=== PATIENT | female | born 1990 | race American Indian/Alaskan Native ===

== ENCOUNTER 2016-12-27 13:12 | Emergency (ER) | payer OTHER ==
[2016-12-27 13:30] VITALS: BMI 20.3
[2016-12-27 13:35] VITALS: TEMP 98.2; O2SAT 98
[2016-12-27] MEDS ORDERED: Sodium Chloride 0.9% 1,000 ML IV STA (13:40)
--- NOTE | 2016-12-27 14:07 | ED PDOC ---
Arrival/HPI - General Chief Complaint: Abdominal Pain Time Seen by Provider: 12/27/16 13:36 Historian: Patient - History of Present Illness Narrative History of Present Illness (Text): 12/27/16 14:04 Ruby Rodrigues is a 26 year old female who presents to the emergency department complaining of abdominal pain since earlier today morning. Patient reports that she woke up with the pain in the middle of the night and notes of 3 bouts of non -bloody, non-bilious vomiting. Patient also reports of left adexa pain. Last menstrual period was last month. Denies fever, chills, headache, difficulty breathing, diarrhea, urinary symptoms, or any other complaints at this time. no vb, discharge. 12/27/16 16:52 Time/Duration: 24 hours (since midnight today ) Symptom Onset: Gradual Symptom Course: Unchanged Severity Level: Mild Activities at Onset: Sleeping Context: Home Past Medical History - Provider Review Nursing Documentation Reviewed: Yes - Infectious Disease Hx of Infectious Diseases: None - Psychiatric Hx Substance Use: No - Surgical History Other/Comment: cyst removed collar bone - Anesthesia Hx Anesthesia Reactions: No Hx Malignant Hyperthermia: No Family/Social History - Physician Review Nursing Documentation Reviewed: Yes Family/Social History: No Known Family HX Smoking Status: Never Smoked Hx Alcohol Use: Yes Hx Substance Use: No Allergies/Home Meds Allergies/Adverse Reactions: Allergies No Known Allergies Allergy (Verified 12/27/16 13:30) Review of Systems - Physician Review All systems were reviewed & negative as marked: Yes - Review of Systems Constitutional: Normal. absent: Fatigue, Fevers Respiratory: Normal. absent: SOB, Cough, Sputum Cardiovascular: Normal. absent: Chest Pain Gastrointestinal: Abdominal Pain, Nausea, Vomiting. absent: Diarrhea Genitourinary Female: Normal Musculoskeletal: Back Pain, Other (left groin area ) Neurological: Normal. absent: Headache, Dizziness Psychiatric: Normal Physical Exam Vital Signs Reviewed: Yes Vital Signs Temp Pulse Resp BP Pulse Ox 12/27/16 16:34 89 18 101/61 98 12/27/16 15:39 98 H 18 99/59 L 98 12/27/16 13:13 98.2 F 107 H 16 95/51 L 98 Temperature: Afebrile Blood Pressure: Normal Pulse: Tachycardic Respiratory Rate: Normal Appearance: Positive for: Well-Appearing, Non-Toxic, Comfortable Pain Distress: None Mental Status: Positive for: Alert and Oriented X 3 - Systems Exam Head: Present: Atraumatic, Normocephalic Pupils: Present: PERRL Conjunctiva: Present: Normal Respiratory/Chest: Present: Clear to Auscultation, Good Air Exchange. No: Respiratory Distress, Accessory Muscle Use Cardiovascular: Present: Regular Rate and Rhythm, Normal S1, S2. No: Murmurs Abdomen: Present: Tenderness (minimal left Adnexal tenderness ), Normal Bowel Sounds. No: Distention, Peritoneal Signs Neurological: Present: GCS=15, CN II-XII Intact, Speech Normal Skin: Present: Warm, Dry, Normal Color. No: Rashes Psychiatric: Present: Alert, Oriented x 3, Normal Insight, Normal Concentration Medical Decision Making ED Course and Treatment: 12/27/16 14:09 Impression: A 26 year old female who presents to the ed complaining of back pain and abdominal pain with nausea and vomiting since earlier today. Plan: -- Labs -- IV fluids -- Zofran -- HCG -- Urinalysis -- Transvaginal US -- Reassess and disposition Progress Notes: 12/27/16 16:40 US Transvaginal results reviewed: IMPRESSION: Unremarkable pelvic ultrasound thickened J 12/27/16 16:51 pt reassessed. abd soft. no ttp. no rlq ttp. pt now states feels well to go home. nonspecifc pain. no rlq, focal ttp. no clinic concern for appendicits, coltitis. advise outpt f/u and return precautions - Lab Interpretations Lab Results: 12/27/16 14:58 12/27/16 14:58 Lab Results 12/27/16 14:58: WBC 7.7, RBC 4.46, Hgb 13.3, Hct 38.8, MCV 87.0, MCH 29.8, MCHC 34.3, RDW 13.4, Plt Count 247, MPV 10.0, Gran % 89.3 H, Lymph % (Auto) 5.8 L, Ness % (Auto) 4.8, Eos % (Auto) 0.0 L, Baso % (Auto) 0.1, Gran # 6.89 H, Lymph # 0.5 L, Ness # 0.4, Eos # 0.0, Baso # 0.01, PT 11.8, INR 1.09 H, APTT 26.5, Sodium 138, Potassium 3.5 L, Chloride 101, Carbon Dioxide 24, Anion Gap 17, BUN 12, Creatinine 0.7, Est GFR ( Amer) > 60, Est GFR (Non-Af Amer) > 60, Random Glucose 103, Calcium 8.9, Total Bilirubin 1.5 H, AST 27, ALT 19, Alkaline Phosphatase 78, Total Protein 8.2, Albumin 4.4, Globulin 3.8, Albumin/ Globulin Ratio 1.2, Lipase 41 12/27/16 14:40: Urine Color Yellow, Urine Appearance Sl cloudy, Urine pH 6.0, Ur Specific [place] >= 1.030, Urine Protein Trace H, Urine Glucose (UA) Negative , Urine Ketones 40 H, Urine Blood Negative, Urine Nitrate Negative, Urine Bilirubin Negative, Urine Urobilinogen 1.0 H, Ur Leukocyte Esterase Negative, Urine RBC 0 - 2, Urine WBC 0 - 2, Ur Epithelial Cells 3 - 4, Urine Bacteria Few , Urine HCG, Qual Negative I have reviewed the lab results: Yes - RAD Interpretation Narrative RAD Interpretations (Text): PROCEDURE: FINDINGS: The uterus measures 8.6 x 4.2 centimeters. The endometrium measures 3 millimeters. The right ovary measures 2.7 by 1.9 x 2.9 centimeters. The left ovary measures 2.7 x 1.6 x 1.5 centimeters. There is no free fluid the pelvis. IMPRESSION: Unremarkable pelvic ultrasound thickened J Radiology Orders: 12/27/16 13:41 TRANSVAGINAL [US] [employer] Teacher: Radiologist - Medication Orders Current Medication Orders: Discontinued Medications Sodium Chloride (Sodium Chloride 0.9%) 1,000 mls @ 1,000 mls/hr IV .Q1H STA Stop: 12/27/16 14:39 Last Admin: 12/27/16 14:45 Dose: 1,000 MLS/HR eMAR Start Stop Document 12/27/16 14:45 ALISHA (Rec: 12/27/16 14:54 ALISHA [id number]) Intravenous Solution Start Date 12/27/16 Start Time 14:45 End Date 12/27/16 End time 15:45 Total Infusion Time 60 Ketorolac Tromethamine (Toradol) 30 mg IVP STAT STA Stop: 12/27/16 15:52 Last Admin: 12/27/16 16:01 Dose: 30 MG IVP Administration Document 12/27/16 16:01 ALISHA (Rec: 12/27/16 16:01 ALISHA [id number]) Charges for Administration # of IVP Administrations 1 Ondansetron HCl (Zofran Inj) 4 mg IVP STAT STA Stop: 12/27/16 13:41 Last Admin: 12/27/16 14:50 Dose: 4 MG IVP Administration Document 12/27/16 14:50 ALISHA (Rec: 12/27/16 14:55 ALISHA [id number]) Charges for Administration # of IVP Administrations 1 - Scribe Statement The provider has reviewed the documentation as recorded by the Claritaibe Shayan Delatorre Provider Attestation: All medical record entries made by the Claritaibe were at my direction and personally dictated by me. I have reviewed the chart and agree that the record accurately reflects my personal performance of the history, physical exam, medical decision making, and the department course for this patient. I have also personally directed, reviewed, and agree with the discharge instructions and disposition. Disposition/Present on Arrival - Present on Arrival Any Indicators Present on Arrival: No History of DVT/PE: No History of Uncontrolled Diabetes: No Urinary Catheter: No History of Decub. Ulcer: No History Surgical Site Infection Following: None - Disposition Have Diagnosis and Disposition been Completed?: Yes Diagnosis: Pelvic pain, Abdominal pain Disposition: HOME/ ROUTINE Disposition Time: 16:56 Condition: STABLE Discharge Instructions (ExitCare): Acute Abdominal Pain (ED), Pelvic Pain (ED) Additional Instructions: please follow up with your doctor/clinic and specialists. return to er with worsening symptoms or concerns. Prescriptions: Naproxen 500 mg PO BID PRN #14 tab PRN Reason: Pain, Mild (1-3) Referrals: PCP,NO [Primary Care Provider] - Follow up with primary [facility] [place] [Outside] - Follow up with primary [facility] [Outside] - Follow up with primary Boby Elmore MD [Staff Provider] - Follow up with primary Elda Gauthier MD [Staff Provider] - Follow up with primary
[2016-12-27 15:08] LABS: ADD MANUAL DIFF? NO
[2016-12-27 15:27] LABS: BASO # 0.01 K/mm3 (0.0-2.0); BASO % 0.1 % (0.0-3.0); GRAN # 6.89 (1.4-6.5); GRAN % 89.3 % (50.0-68.0); HEMATOCRIT 38.8 % (36.0-48.0); LYMPH # 0.5 (1.2-3.4); LYMPH % 5.8 % (22.0-35.0); MEAN CORPUSCULAR HEMOGLOBIN 29.8 pg (25.0-35.0); MEAN CORPUSCULAR HGB CONC 34.3 g/dl (31.0-37.0); MONO # 0.4 (0.1-0.6); MONO % 4.8 % (1.0-6.0); PLATELET COUNT 247 10^3/uL (120.0-450.0); RED CELL DISTRIBUTION WIDTH 13.4 % (11.5-14.5); WHITE BLOOD COUNT 7.7 10^3/ul (4.5-11.0)
[2016-12-27 15:28] LABS: URINE BILIRUBIN NEGATIVE (NEGATIVE); URINE BLOOD NEGATIVE (NEGATIVE); URINE GLUCOSE (UA) NEGATIVE (NEGATIVE); URINE KETONE 40 mg/dL (NEGATIVE); URINE LEUKOCYTE ESTERASE NEGATIVE Leu/uL (NEGATIVE); URINE PROTEIN TRACE mg/dL (<30 mg/dL)
[2016-12-27 15:29] LABS: URINE APPEARANCE SL CLOUDY (CLEAR); URINE COLOR YELLOW (YELLOW)
[2016-12-27 15:30] LABS: INR 1.09 (0.93-1.08); PARTIAL THROMBOPLASTIN TIME 26.5 Seconds (23.7-30.8)
[2016-12-27 15:31] LABS: ALB/GLOB RATIO 1.2 (1.1-1.8); ALKALINE PHOSPHATASE 78 U/L (38-133); ALT/SGPT 19 U/L (7-56); AST/SGOT 27 U/L (15-39); BILIRUBIN,TOTAL 1.5 mg/dL (0.2-1.3); BLOOD UREA NITROGEN 12 mg/dL (7-21); CALCIUM 8.9 mg/dL (8.4-10.5); CARBON DIOXIDE 24 mmol/L (21-33); CHLORIDE 101 mmol/L (98-107); GFR AFRICAN-AMERICAN > 60; GLUCOSE,RANDOM 103 mg/dL (70-110); LIPASE 41 U/L (23-300); POTASSIUM 3.5 mmol/L (3.6-5.0); SODIUM 138 mmol/L (132-148); TOTAL PROTEIN 8.2 g/dL (5.8-8.3)
[2016-12-27 15:40] VITALS: RESP 18
[2016-12-27 15:52] LABS: URINE RBC 0 - 2 /hpf (0-2); URINE WBC 0 - 2 /hpf (0-6)
[2016-12-27 15:53] LABS: URINE BACTERIA FEW (NEG)
--- NOTE | 2016-12-27 16:07 | US ---
PROCEDURE: HISTORY: left adexal pain COMPARISON: TECHNIQUE: FINDINGS: The uterus measures 8.6 x 4.2 centimeters. The endometrium measures 3 millimeters. The right ovary measures 2.7 by 1.9 x 2.9 centimeters. The left ovary measures 2.7 x 1.6 x 1.5 centimeters. There is no free fluid the pelvis. IMPRESSION: Unremarkable pelvic ultrasound thickened J
[2016-12-27 16:34] VITALS: BP 101/61; PULSE 89
== END 2016-12-27 17:21 | disposition home or self-care (01) ==
LOC: ED 13:12
DX: R10.2 Pelvic and perineal pain (principal); R10.9 Unspecified abdominal pain
CPT/HCPCS: 76830; 80053; 81001; 83690; 84703; 85025; 85610; 85730; 96361; 96374; 96375; 99283; J1885; J2405; J7040

== ENCOUNTER 2018-06-29 10:35 | Emergency (ER) | payer OTHER ==
[2018-06-29 10:36] VITALS: BMI 65.0
[2018-06-29] MEDS ORDERED: Sodium Chloride 0.9% 1,000 ML IV STA (11:36)
--- NOTE | 2018-06-29 11:57 | ED PDOC ---
Arrival/HPI - General Historian: Patient - History of Present Illness Narrative History of Present Illness (Text): 06/29/18 11:50 28 yo F with PMHx of anxiety, depression presenting to ED with lightheadedness s/p syncopal episode. Per patient, she was waiting in line discussing her welfare status earlier this AM when she suddenly began feeling nauseous and dizzy. Endorses syncopal fall, denies any head trauma. Has associated nausea but no vomiting. She denies any headaches, dizziness currently, sob, cough, changes in vision, chest pain, palpitations, abdominal pain, vomiting/diarrhea/constipation. Of note, patient is 14 weeks , follows Dr. Alvarado in [place]. Endorses recent fevers 1-2 weeks ago for which she was given antibiotics. PMHx: anxiety, depression, recent strep PSHx: , Allergies: NKDA Home Medications: as per chart FHx: HTN, DM Social Hx: denies alcohol, tobacco, drug use. 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, [place] Time/Duration: 1-3 hours Symptom Onset: Sudden Symptom Course: Improving Severity Level: Mild Activities at Onset: Light Context: Standing <Guy Wills - Last Filed: 06/29/18 16:36> <Brendan Medley - Last Filed: 06/29/18 18:00> - General Time Seen by Provider: 06/29/18 11:00 Past Medical History - Provider Review Nursing Documentation Reviewed: Yes - Infectious Disease Hx of Infectious Diseases: None - Cardiac Hx Cardiac Disorders: No - Psychiatric Hx Psychophysiologic Disorder: Yes Hx Anxiety: Yes Hx Depression: Yes Hx Substance Use: No - Surgical History Hx Section: Yes Other/Comment: cyst removed collar bone - Anesthesia Hx Anesthesia: Yes Hx Anesthesia Reactions: No Hx Malignant Hyperthermia: No <Guy Wills - Last Filed: 06/29/18 16:36> Family/Social History - Physician Review Nursing Documentation Reviewed: Yes Family/Social History: Diabetes, Hypertension Smoking Status: Never Smoked Hx Alcohol Use: Yes Hx Substance Use: No <Guy Wills - Last Filed: 06/29/18 16:36> Allergies/Home Meds <Guy Wills - Last Filed: 06/29/18 16:36> <Brendan Medley - Last Filed: 06/29/18 18:00> Allergies/Adverse Reactions: Allergies No Known Allergies Allergy (Verified 12/27/16 13:30) Home Medications: Home Meds Medication Instructions Recorded Confirmed Vit #49/Iron Fum/FA [Mini 1 each PO DAILY 06/29/18 06/29/18 Tablet] Review of Systems - Review of Systems Constitutional: Normal Eyes: Normal ENT: Normal Respiratory: Normal. absent: SOB, Cough Cardiovascular: Normal, Syncope. absent: Chest Pain, Palpitations Gastrointestinal: Nausea. absent: Abdominal Pain, Constipation, Diarrhea, Vomiting, Hematochezia, Hematemesis Genitourinary Female: Normal. absent: Dysuria, Frequency, Hematuria, Urine Output Changes Musculoskeletal: Normal Skin: Normal Neurological: Normal. absent: Headache, Dizziness Endocrine: Normal Hemo/Lymphatic: Normal Psychiatric: Anxiety, Depression <Guy Wills - Last Filed: 06/29/18 16:36> Physical Exam Vital Signs Reviewed: Yes Vital Signs Temp Pulse Resp BP Pulse Ox 06/29/18 10:53 98.2 F 100 H 16 97/60 L 100 Temperature: Afebrile Blood Pressure: Hypotensive Pulse: Tachycardic Respiratory Rate: Normal Appearance: Positive for: Well-Appearing, Non-Toxic, Comfortable Pain Distress: None Mental Status: Positive for: Alert and Oriented X 3 Finger Stick Blood Glucose: 83 - Systems Exam Head: Present: Atraumatic, Normocephalic Pupils: Present: PERRL Extroacular Muscles: Present: EOMI Conjunctiva: Present: Normal Ears: Present: Normal Mouth: Present: Moist Mucous Membranes Pharnyx: Present: Normal Neck: Present: Normal Range of Motion Respiratory/Chest: Present: Clear to Auscultation, Good Air Exchange. No: Respiratory Distress, Accessory Muscle Use, Wheezes, Rales, Rhonchi Cardiovascular: Present: Regular Rate and Rhythm, Normal S1, S2. No: Murmurs Abdomen: Present: Normal Bowel Sounds. No: Tenderness, Distention, Rebound, Guarding, Mass/Organomegaly Upper Extremity: Present: Normal Inspection, Normal ROM, NORMAL PULSES, Capillary Refill < 2s. No: Cyanosis, Edema, Tenderness, Swelling Lower Extremity: Present: Normal Inspection, NORMAL PULSES, Normal ROM, Capillary Refill < 2 s. No: Edema, CALF TENDERNESS, Tenderness, Swelling Neurological: Present: CN II-XII Intact, Speech Normal Skin: Present: Warm, Dry, Normal Color. No: Rashes Psychiatric: Present: Alert, Oriented x 3, Normal Insight, Normal Concentration <Guy Wills - Last Filed: 06/29/18 16:36> Vital Signs Temp Pulse Resp BP Pulse Ox 06/29/18 12:11 94 H 18 99/65 L 100 06/29/18 10:53 98.2 F 100 H 16 97/60 L 100 <Brendan Medley - Last Filed: 06/29/18 18:00> Medical Decision Making ED Course and Treatment: 06/29/18 12:01 Impression: 28 yo AA F with PMHx of anxiety, depression presenting to ED with lightheadedness, syncopal episode Plan: --CBC, CMP --PT/PTT --beta HCG --type and screen --IVF --transvaginal u/s --UA --fingerstick glucose --monitor and disposition - RAD Interpretation Radiology Orders: 06/29/18 11:36 TRANSVAGINAL [US] Stat - EKG Interpretation EKG Interpretation (Text): 06/29/18 12:00 NSR 91 bpm Interpreted by ED Physician: Yes Type: 12 lead EKG - Medication Orders Current Medication Orders: Sodium Chloride (Sodium Chloride 0.9%) 1,000 mls @ 999 mls/hr IV .Q1H1M STA Stop: 06/29/18 12:36 <Guy Wills - Last Filed: 06/29/18 16:36> ED Course and Treatment: 06/29/18 12:40 Patient Seen With Resident: In agreement with resident note. Patient was seen and evaluated with resident, came up with plan and treatment together. Impression: Patient is a 28 year old female who is complaining of a syncopal event. 06/29/18 18:00 pt seen with resident s/p syncope. labs us neg. pt eating in nad. vitalst atable no ekg changes. ?dehydration vs vasovagal. doubt cardiac etiology. no cp no sob, no cardipulm complaints stable for outpt mangment and return precautions. - Lab Interpretations Lab Results: 06/29/18 11:52 06/29/18 11:52 Lab Results 06/29/18 11:52: Sodium 136, Potassium 4.3, Chloride 103, Carbon Dioxide 25, Anion Gap 13, BUN 9, Creatinine 0.4 L, Est GFR ( Amer) > 60, Est GFR (Non-Af Amer) > 60, Random Glucose 94, Calcium 9.7, Total Bilirubin 0.3, AST 24, ALT 26, Alkaline Phosphatase 58, Total Protein 7.3, Albumin 3.9, Globulin 3.3, Albumin/Globulin Ratio 1.2 06/29/18 11:52: Urine Color Yellow, Urine Appearance Cloudy, Urine pH 7.5, Ur Specific [place] 1.020, Urine Protein 30 H, Urine Glucose (UA) Negative, Urine Ketones Negative, Urine Blood Negative, Urine Nitrate Negative, Urine Bilirubin Negative, Urine Urobilinogen 1.0 H, Ur Leukocyte Esterase Small H, Urine RBC 0 - 2, Urine WBC 5 - 10, Ur Epithelial Cells Many, Amorphous Sediment Few, Urine Bacteria Many, Urine Other Uyeast, Urine HCG, Qual Positive 06/29/18 11:52: PT 11.8, INR 1.03, APTT 26.3 06/29/18 11:52: WBC 9.3 D, RBC 4.03, Hgb 11.8 L, Hct 34.1 L, MCV 84.6, MCH 29.3, MCHC 34.6, RDW 13.1, Plt Count 311, MPV 8.9, Gran % 79.7 H, Lymph % (Auto) 14.3 L, [place] % (Auto) 4.9, Eos % (Auto) 1.0 L, Baso % (Auto) 0.1, Gran # 7.44 H , Lymph # (Auto) 1.3, [place] # (Auto) 0.5, Eos # (Auto) 0.1, Baso # (Auto) 0.01 - RAD Interpretation Narrative RAD Interpretations (Text): 06/29/18 14:29 Ultrasound: Dictator : Kayden Polk MD FINDINGS: Cardiac activity: Present Rate: 145 BPM Measurements: [place] rump length: 7.42 cm Gestational age based on CRL 13 weeks 4 days. Gestational age based on gestational femur length 1.17 cm 13 weeks 3 days Gestational age based on BPD of 2.2 cm 13 weeks 5 days Gestational age derived from LMP: 13 weeks 3 days YAMILETH based on LMP: 01/01/2019 YAMILETH based on biometry: 12/31/2018 Gestational concordance documented Cervix: No Cervical abnormalities: Negative examination for cervical dilatation or effacement. Closed cervix measuring 5.2 cm Subchorionic hemorrhage: None UTERUS: 7 x 10.8 x 15.8 cm. ADNEXA: Right: 4.3 x 4.6 x 5.7 cm. Normal Doppler arterial waveform documented. Left: 2.5 x 3.9 x 4.1 cm. Normal Doppler arterial waveform documented Fluid in the cul-de-sac: None Anterior placenta IMPRESSION: Thirteen weeks 4 days live intrauterine gestation. Gestational concordance documented. Radiology Orders: 06/29/18 11:36 TRANSVAGINAL [US] [employer] Engineer: Radiologist - Medication Orders Current Medication Orders: Discontinued Medications Sodium Chloride (Sodium Chloride 0.9%) 1,000 mls @ 999 mls/hr IV .Q1H1M STA Stop: 06/29/18 12:36 Last Admin: 06/29/18 11:58 Dose: 999 mls/hr eMAR Start Stop Document 06/29/18 11:58 HI (Rec: 06/29/18 11:58 HI [id number]) Intravenous Solution Start Date 06/29/18 Start Time 11:58 <Brendan Medley - Last Filed: 06/29/18 18:00> - Scribe Statement The provider has reviewed the documentation as recorded by the Scribe Philip Mix Provider Scribe Attestation: All medical record entries made by the Scribe were at my direction and personally dictated by me. I have reviewed the chart and agree that the record accurately reflects my personal performance of the history, physical exam, medical decision making, and the department course for this patient. I have also personally directed, reviewed, and agree with the discharge instructions and disposition. <Brendan Medley - Last Filed: 06/29/18 18:00> Disposition/Present on Arrival - Present on Arrival Any Indicators Present on Arrival: No History of DVT/PE: No History of Uncontrolled Diabetes: No Urinary Catheter: No History of Decub. Ulcer: No History Surgical Site Infection Following: None - Disposition Have Diagnosis and Disposition been Completed?: Yes Disposition Time: 16:36 <Guy Wills - Last Filed: 06/29/18 16:36> <ReyluisBrendan - Last Filed: 06/29/18 18:00> - Disposition Diagnosis: Syncope Disposition: HOME/ ROUTINE Condition: STABLE Discharge Instructions (ExitCare): Urinary Tract Infections in Adults, Syncope (Fainting), Threatened Miscarriage, Syncope (ED) Additional Instructions: return to er with worsening symptoms or concerns. Prescriptions: RX: Cefpodoxime [Vantin] 100 mg PO BID #20 tab Referrals: Office Clerk Assistant Service [Outside] - Follow up with primary [facility] [place]] - [facility] [[facility]] - Follow up with primary Forms: spotflux (Frisian)
[2018-06-29 12:12] VITALS: RESP 18
[2018-06-29 12:15] LABS: BASO # 0.01 K/mm3 (0.0-2.0); BASO % 0.1 % (0.0-3.0); EOS # 0.1 (0.0-0.7); GRAN # 7.44 (1.4-6.5); GRAN % 79.7 % (50.0-68.0); HEMOGLOBIN 11.8 g/dL (12.0-16.0); LYMPH # 1.3 (1.2-3.4); LYMPH % 14.3 % (22.0-35.0); MEAN CELL VOLUME 84.6 fl (80.0-105.0); MEAN CORPUSCULAR HEMOGLOBIN 29.3 pg (25.0-35.0); MEAN CORPUSCULAR HGB CONC 34.6 g/dl (31.0-37.0); MEAN PLATELET VOLUME 8.9 fl (7.0-11.0); MONO # 0.5 (0.1-0.6); MONO % 4.9 % (1.0-6.0); RBC 4.03 10^6/uL (3.5-6.1); RED CELL DISTRIBUTION WIDTH 13.1 % (11.5-14.5); WHITE BLOOD COUNT 9.3 10^3/ul (4.5-11.0)
[2018-06-29 12:16] LABS: HCG,QUALITATIVE URINE POSITIVE (NEGATIVE); PH,URINE 7.5 (4.7-8.0); URINE BILIRUBIN NEGATIVE (NEGATIVE); URINE BLOOD NEGATIVE (NEGATIVE); URINE GLUCOSE (UA) NEGATIVE (NEGATIVE); URINE LEUKOCYTE ESTERASE SMALL Leu/uL (NEGATIVE); URINE PROTEIN 30 mg/dL (<30 mg/dL)
[2018-06-29 12:17] LABS: URINE COLOR YELLOW (YELLOW)
[2018-06-29 12:24] LABS: INR 1.03; PARTIAL THROMBOPLASTIN TIME 26.3 Seconds (25.1-36.5); PROTHROMBIN TIME 11.8 SECONDS (9.4-12.5)
[2018-06-29 12:25] LABS: ALB/GLOB RATIO 1.2 (1.1-1.8); ALBUMIN 3.9 g/dL (3.0-4.8); ALT/SGPT 26 U/L (7-56); AST/SGOT 24 U/L (14-36); BLOOD UREA NITROGEN 9 mg/dL (7-21); CALCIUM 9.7 mg/dL (8.4-10.5); GFR NON-AFRICAN AMERICAN > 60; URINE APPEARANCE CLOUDY (CLEAR); URINE BACTERIA MANY (NEG); URINE RBC 0 - 2 /hpf (0-2)
[2018-06-29 12:26] LABS: URINE AMORPHOUS SEDIMENT FEW; URINE EPITHELIAL CELLS MANY /hpf (0-5)
--- NOTE | 2018-06-29 14:14 | US ---
Date of service: 06/29/2018 PROCEDURE: limited ultrasound HISTORY: /syncope COMPARISON: None TECHNIQUE: Transvaginal only. Real -time technique with 2D, duplex and color Doppler FINDINGS: LMP: 03/27/2018 Prior examinations from the current : None TECHNIQUE: Real-time 2D imaging, duplex and color Doppler. FINDINGS: Cardiac activity: Present Rate: 145 BPM Measurements: [place] rump length: 7.42 cm Gestational age based on CRL 13 weeks 4 days. Gestational age based on gestational femur length 1.17 cm 13 weeks 3 days Gestational age based on BPD of 2.2 cm 13 weeks 5 days Gestational age derived from LMP: 13 weeks 3 days YAMILETH based on LMP: 01/01/2019 YAMILETH based on biometry: 12/31/2018 Gestational concordance documented Cervix: No Cervical abnormalities: Negative examination for cervical dilatation or effacement. Closed cervix measuring 5.2 cm Subchorionic hemorrhage: None UTERUS: 7 x 10.8 x 15.8 cm. ADNEXA: Right: 4.3 x 4.6 x 5.7 cm. Normal Doppler arterial waveform documented. Left: 2.5 x 3.9 x 4.1 cm. Normal Doppler arterial waveform documented Fluid in the cul-de-sac: None Anterior placenta IMPRESSION: Thirteen weeks 4 days live intrauterine gestation. Gestational concordance documented.
--- NOTE | 2018-06-29 16:35 | CARD ---
APPROVED REPORT Date of service: 06/29/2018 EKG Measurement Heart [id number] <Conclusion> Normal sinus rhythm Normal ECG
[2018-06-29 17:14] VITALS: BP 97/62; PULSE 95; TEMP 98.3; O2SAT 99
== END 2018-06-29 14:00 | disposition home or self-care (01) ==
LOC: ED 10:35
DX: R55 Syncope and collapse (principal); O26.91 Pregnancy related conditions, unspecified, first trimester; Z3A.13 13 weeks gestation of pregnancy
CPT/HCPCS: 76815; 80053; 81001; 84702; 84703; 85025; 85610; 85730; 86850; 86900; 87086; 93005; 99285; J7030

== ENCOUNTER 2018-07-08 18:23 | Emergency (ER) | payer OTHER ==
[2018-07-08 19:04] VITALS: O2SAT 100; BMI 20.3
[2018-07-08] MEDS ORDERED: Sodium Chloride 0.9% 1,000 ML IV STA (19:06)
--- NOTE | 2018-07-08 19:17 | ED PDOC ---
Arrival/HPI - General Chief Complaint: Syncope Time Seen by Provider: 07/08/18 19:04 Historian: Patient - History of Present Illness Narrative History of Present Illness (Text): 07/08/18 19:11 Patient is a 28-year-old female, is 14 weeks , reports after walking up 4 flights of stairs, while she was sitting on a chair getting her hair done, she felt "sick" and had a syncopal episode which was observed by her hairspring staker. She was told that she was "out for less the 1 minute," and afterwards felt lightheaded. She states that she has only eaten a cheese polish today and has been drinking water. Reports that she had a similar episode 1 week ago, was seen and evaluated here in the ER, had labs and US done and all results were "good." She states after her ER visit, she then f/u with her OB, who told her to drink more water and to stay more hydrated as her BP could have dropped as the reason to why she syncopized the last time. Otherwise: (-) dizziness, (-) trauma, (-) headache, (-) tinnitus, (-) hearing loss, (-) chest pain, (-) dyspnea, (-) fever, (-) abdominal pain, (-) vaginal bleeding, (-) vomiting, (-) diarrhea, (-) syncope, (-) GI bleeding. Past Medical History - Infectious Disease Hx of Infectious Diseases: None - Cardiac Hx Cardiac Disorders: No - Psychiatric Hx Psychophysiologic Disorder: Yes Hx Anxiety: Yes Hx Depression: Yes Hx Substance Use: No - Surgical History Hx Section: Yes Other/Comment: cyst removed collar bone - Anesthesia Hx Anesthesia: Yes Hx Anesthesia Reactions: No Hx Malignant Hyperthermia: No Family/Social History Family/Social History: No Known Family HX Smoking Status: Never Smoked Hx Alcohol Use: Yes Hx Substance Use: No Allergies/Home Meds Allergies/Adverse Reactions: Allergies No Known Allergies Allergy (Verified 12/27/16 13:30) Home Medications: Home Meds Medication Instructions Recorded Confirmed Vit #49/Iron Fum/FA [Mini 1 each PO DAILY 06/29/18 07/08/18 Tablet] Review of Systems - Review of Systems Constitutional: absent: Fatigue, Fevers Respiratory: absent: SOB, Cough Cardiovascular: absent: Chest Pain, Palpitations Gastrointestinal: Nausea (related to ). absent: Abdominal Pain, Diarrhea, Vomiting Musculoskeletal: absent: Arthralgias, Back Pain, Neck Pain Skin: absent: Rash, Pruritis Neurological: absent: Headache, Dizziness Physical Exam Vital Signs Temp Pulse Resp BP Pulse Ox 07/08/18 18:58 112 H 17 119/79 100 07/08/18 18:50 98.5 F 109 H 18 111/67 100 Temperature: Afebrile Blood Pressure: Normal Pulse: Tachycardic Respiratory Rate: Normal Appearance: Positive for: Well-Appearing, Non-Toxic, Comfortable Pain Distress: None Mental Status: Positive for: Alert and Oriented X 3 Finger Stick Blood Glucose: 83 - Systems Exam Head: Present: Atraumatic, Normocephalic Pupils: Present: PERRL Extroacular Muscles: Present: EOMI Conjunctiva: Present: Normal Mouth: Present: Dry Neck: Present: Normal Range of Motion Respiratory/Chest: Present: Clear to Auscultation, Good Air Exchange. No: Respiratory Distress, Accessory Muscle Use Cardiovascular: Present: Normal S1, S2, Tachycardic. No: Murmurs Abdomen: No: Tenderness, Distention, Peritoneal Signs Back: Present: Normal Inspection Upper Extremity: Present: Normal Inspection. No: Cyanosis, Edema Lower Extremity: Present: Normal Inspection. No: Edema Neurological: Present: GCS=15, CN II-XII Intact, Speech Normal Skin: Present: Warm, Dry, Normal Color. No: Rashes Psychiatric: Present: Alert, Oriented x 3, Normal Insight, Normal Concentration Medical Decision Making ED Course and Treatment: 07/08/18 19:10 Previous medical records reviewed : patient was seen and evaluated in this ER on 06/29/18 for syncope, labs were done which was wnl and US was done which showed : thirteen weeks 4 days live intrauterine gestation. Gestational concordance documented. Plan: -- Labs -- IV fluids -- Urinalysis -- EKG -- Reassess and disposition FS : 83 EKG : NSR at 97 bpm, (-) acute ST changes, as read by KELL Labs reviewed and wnl. On reevaluation, patient reports improvement of symptoms, denies any dizziness, CP, SOB, abdominal pain, or vaginal bleeding. On exam, patient remains awake alert and oriented 3 in no acute distress. Advised to follow up with her OB physician in 1-2 days without fail. Advised to stay hydrated and to eat at least 3 normal meals a day, advised that her symptoms today was likely due to hypoglycemia. Return to the emergency room at any time for any new or worsening symptoms. Patient states she fully agrees with and understands discharge instructions. States that she agrees with the plan and disposition. Verbalized and repeated discharge instructions and plan. I have given the patient opportunity to ask any additional questions. - Medication Orders Current Medication Orders: Sodium Chloride (Sodium Chloride 0.9%) 100 mls @ 1,000 mls/hr IV .Q6M STA Stop: 07/08/18 19:11 - PA / PRODUCT APPLICATIONS SCIENTIST / Resident Statement MD/DO has reviewed & agrees with the documentation as recorded. Disposition/Present on Arrival - Present on Arrival Any Indicators Present on Arrival: No History of DVT/PE: No History of Uncontrolled Diabetes: No Urinary Catheter: No History of Decub. Ulcer: No History Surgical Site Infection Following: None - Disposition Have Diagnosis and Disposition been Completed?: Yes Diagnosis: Syncope Disposition: HOME/ ROUTINE Disposition Time: 21:00 Patient Plan: Discharge Patient Problems: Current Active Problems Problem Status Onset Syncope Acute Condition: STABLE Discharge Instructions (ExitCare): Syncope (ED) Additional Instructions: Thank you for letting us take care of you today. You were treated for syncope. The emergency medical care you received today was directed at your acute symptoms. Return to the Emergency Department if your symptoms worsen, do not improve, or if you have any other problems. Please contact your OB doctor in 2 days for re-evaluation and follow up. Bring any paperwork you were given at discharge with you along with any medications you are taking to your follow up visit. Our treatment cannot replace ongoing medical care by a primary care provider (PCP) outside of the emergency department. Thank you for allowing the [facility] team to be part of your care today. Referrals: PCP,NO [Primary Care Provider] - Follow up with primary Forms: [employer] (Turkmen), WORK NOTE
[2018-07-08 20:19] LABS: BASO # 0.01 K/mm3 (0.0-2.0); BASO % 0.1 % (0.0-3.0); EOS # 0.1 (0.0-0.7); GRAN # 7.91 (1.4-6.5); HEMOGLOBIN 12.4 g/dL (12.0-16.0); LYMPH # 1.7 (1.2-3.4); LYMPH % 16.3 % (22.0-35.0); MEAN CELL VOLUME 85.3 fl (80.0-105.0); MEAN CORPUSCULAR HGB CONC 35.1 g/dl (31.0-37.0); MEAN PLATELET VOLUME 9.1 fl (7.0-11.0); MONO # 0.6 (0.1-0.6); MONO % 5.6 % (1.0-6.0); RBC 4.14 10^6/uL (3.5-6.1); RED CELL DISTRIBUTION WIDTH 13.3 % (11.5-14.5); URINE BILIRUBIN NEGATIVE (NEGATIVE); URINE BLOOD NEGATIVE (NEGATIVE); URINE COLOR YELLOW (YELLOW); URINE GLUCOSE (UA) NEGATIVE (NEGATIVE); URINE LEUKOCYTE ESTERASE TRACE Leu/uL (NEGATIVE); URINE PROTEIN NEGATIVE mg/dL (<30 mg/dL); URINE UROBILINOGEN 0.2 E.U./dL (<1 E.U./dL); WHITE BLOOD COUNT 10.3 10^3/ul (4.5-11.0)
[2018-07-08 20:20] LABS: URINE APPEARANCE SL CLOUDY (CLEAR)
[2018-07-08 20:25] LABS: ALB/GLOB RATIO 1.1 (1.1-1.8); ALBUMIN 3.8 g/dL (3.0-4.8); ALT/SGPT 25 U/L (7-56); AST/SGOT 30 U/L (14-36); BLOOD UREA NITROGEN 7 mg/dL (7-21); CALCIUM 9.2 mg/dL (8.4-10.5); GFR NON-AFRICAN AMERICAN > 60
[2018-07-08 20:27] VITALS: RESP 18; TEMP 98.3
[2018-07-08 20:32] LABS: URINE BACTERIA TRACE (NEG)
[2018-07-08 21:10] VITALS: BP 112/86; PULSE 88
--- NOTE | 2018-07-09 11:40 | CARD ---
APPROVED REPORT Date of service: 07/08/2018 EKG Measurement Heart [id number] <Conclusion> Normal sinus rhythm Normal ECG
== END 2018-07-08 21:10 | disposition home or self-care (01) ==
LOC: ED 18:23
DX: O26.891 Other specified pregnancy related conditions, first trimester (principal); R55 Syncope and collapse; Z3A.14 14 weeks gestation of pregnancy

== ENCOUNTER 2018-09-19 15:28 | Emergency (ER) | payer OTHER ==
[2018-09-19 15:41] VITALS: BMI 22.4
[2018-09-19] MEDS ORDERED: Sodium Chloride 0.9% 1,000 ML IV STA (16:24)
--- NOTE | 2018-09-19 16:30 | ED PDOC ---
Arrival/HPI - General Chief Complaint: GI Problem - History of Present Illness Narrative History of Present Illness (Text): 09/19/18 18:06 28 year old A1 6 month female with PMH of hypotension and constipation presents to the emergency department complaining of constipation x 4 days. States she was attempting to use the bathroom today when she felt she was straining too hard to move her bowels. Tolerating PO per baseline. Follows with Dr. Alvarado in [place] for her , last appointment 4 days ago, next appointment 10/10/17. Denies fevers, chills, abdominal pain, nausea, vomiting, diarrhea, vaginal bleeding, or any other associated complaints. Past Medical History - Provider Review Nursing Documentation Reviewed: Yes - Infectious Disease Hx of Infectious Diseases: None - Reproductive Menopause: No - Cardiac Hx Cardiac Disorders: No - Psychiatric Hx Psychophysiologic Disorder: Yes Hx Anxiety: Yes Hx Depression: Yes Hx Substance Use: No - Surgical History Hx Section: Yes Other/Comment: cyst removed collar bone - Anesthesia Hx Anesthesia: Yes Hx Anesthesia Reactions: No Hx Malignant Hyperthermia: No Family/Social History - Physician Review Nursing Documentation Reviewed: Yes Family/Social History: No Known Family HX Smoking Status: Never Smoked Hx Alcohol Use: Yes Hx Substance Use: No Allergies/Home Meds Allergies/Adverse Reactions: Allergies No Known Allergies Allergy (Verified 09/19/18 15:45) Home Medications: Home Meds Medication Instructions Recorded Confirmed Vit #49/Iron Fum/FA [Mini 1 each PO DAILY 06/29/18 07/08/18 Tablet] Review of Systems - Review of Systems Constitutional: Normal. absent: Fevers Eyes: Normal. absent: Vision Changes ENT: Normal. absent: Sore Throat, Sinus Congestion Respiratory: Normal. absent: SOB, Cough Cardiovascular: Normal. absent: Chest Pain, Palpitations, Syncope Gastrointestinal: Constipation. absent: Abdominal Pain, Diarrhea, Nausea, Vomiting Genitourinary Female: Normal. absent: Dysuria, Frequency, Vaginal Bleeding, Vaginal Discharge Musculoskeletal: Normal. absent: Back Pain, Neck Pain Skin: Normal. absent: Rash Neurological: Normal. absent: Headache, Dizziness, Gait Changes Endocrine: Normal Hemo/Lymphatic: Normal Psychiatric: Normal Physical Exam Vital Signs Reviewed: Yes Vital Signs Temp Pulse Resp BP Pulse Ox 09/19/18 15:41 98.5 F 100 H 20 83/56 L 99 Temperature: Afebrile Blood Pressure: Normal Pulse: Regular Respiratory Rate: Normal Appearance: Positive for: Well-Appearing, Non-Toxic, Comfortable Pain Distress: None Mental Status: Positive for: Alert and Oriented X 3 - Systems Exam Head: Present: Atraumatic, Normocephalic Pupils: Present: PERRL Extroacular Muscles: Present: EOMI Conjunctiva: Present: Normal Mouth: Present: Moist Mucous Membranes Nose (External): Present: Atraumatic Nose (Internal): Present: Normal Inspection Neck: Present: Normal Range of Motion. No: Meningeal Signs, MIDLINE TENDERNESS, Lymphadenopathy Respiratory/Chest: Present: Clear to Auscultation, Good Air Exchange. No: Respiratory Distress, Accessory Muscle Use Cardiovascular: Present: Regular Rate and Rhythm, Normal S1, S2, Peripheal Pulses Present. No: Murmurs Abdomen: Present: Normal Bowel Sounds. No: Tenderness, Distention, Peritoneal Signs Rectal: Present: Normal Rectal Tone. No: Occult Blood, Rectal Tenderness, Gross Blood, Hemorrhoids, Fissures, Nodule/Mass/Lesions Back: Present: Normal Inspection. No: CVA Tenderness, Midline Tenderness, Paraspinal Tenderness Upper Extremity: Present: Normal Inspection, Normal ROM, NORMAL PULSES, Neurovascularly Intact, Capillary Refill < 2s. No: Cyanosis, Edema Lower Extremity: Present: Normal Inspection, NORMAL PULSES, Normal ROM, Neurovascularly Intact, Capillary Refill < 2 s. No: Edema, Tenderness, Swelling Neurological: Present: GCS=15, CN II-XII Intact, Speech Normal, Motor Func Grossly Intact, Normal Sensory Function, Gait Normal Skin: Present: Warm, Dry, Normal Color. No: Rashes Lymphatic: No: Cervical Adenopathy Psychiatric: Present: Alert, Oriented x 3, Normal Insight, Normal Concentration, Normal Affect, Normal Mood Medical Decision Making ED Course and Treatment: Initial Plan: * Rectal Exam * UA * IVF * Mg Citrate On rectal exam: normal external exam, normal tone, no rectal tenderness or masses. Small amount of soft stool in rectum. Guiac negative. Chaperoned by EMT Huber. FHT: 144, normal Case discussed with Dr. Medley and Dr. Rodriguez who recommend oral magnesium citrate ( category A) and advise against digital disimpaction or fleet enema secondary to and history of vasovagal syncope. UA: + leuk esterase, will prescribe keflex for asymptomatic bacteruria BP and HR improved with fluid, HR 88 on my re-evaluation, taken on right radial pulse. Discussed at length with patient that constipation is common in and given instructions on the use of magnesium citrate. Advised to increase fluids and fiber in her diet and followup with OBGYN within 1-2 days. Diagnostic testing and plan of care discussed with patient. Strict instructions given regarding prescription use, importance of followup, and signs/symptoms to return to ER including vomiting, fever, abdominal pain, or any other new/worsening symptoms. Patient verbalizes understanding of instructions and was given the opportunity to ask questions. Patient A&Ox3, ambulating with steady gait, with vital signs stable for discharge. - Lab Interpretations Lab Results: Lab Results 09/19/18 19:37: Urine Color Light yellow, Urine Appearance Clear, Urine pH 7.0, Ur Specific Heaters 1.010, Urine Protein Negative, Urine Glucose (UA) Negative, Urine Ketones Negative, Urine Blood Negative, Urine Nitrate Negative, Urine Romna irubin Negative, Urine Urobilinogen 0.2, Ur Leukocyte Esterase Small H, Urine RBC Negative, Urine WBC 1 - 3, Ur Epithelial Cells 4 - 5, Urine Bacteria Small I have reviewed the lab results: Yes Interpretation: All labs normal Disposition/Present on Arrival - Present on Arrival Any Indicators Present on Arrival: No History of DVT/PE: No History of Uncontrolled Diabetes: No Urinary Catheter: No History of Decub. Ulcer: No History Surgical Site Infection Following: None - Disposition Have Diagnosis and Disposition been Completed?: Yes Diagnosis: Asymptomatic bacteriuria during , Constipation Disposition: HOME/ ROUTINE Disposition Time: 19:00 Patient Plan: Discharge Patient Problems: Current Active Problems Problem Status Onset Asymptomatic bacteriuria during Acute Constipation Acute Condition: IMPROVED Discharge Instructions (ExitCare): Constipation, Adult (DC), Asymptomatic Bacteriuria Additional Instructions: Increase fluids Increase fiber Keflex every 12 hours x 7 days Magnesium Citrate 300ml once daily until regular bowel movements Followup with OBGYN within 2 days Followup with primary within 2 days Return to ER for any new/worsening symptoms Prescriptions: Cephalexin [Keflex] 500 mg PO Q12H 7 Days #14 capsule Magnesium Citrate [Citrate of Mag] 300 ml PO DAILY PRN #5 bottle PRN Reason: Constipation Referrals: [facility] [place]] - [facility] [Outside] - Follow up with primary Raquel Horta MD [Medical Doctor] - Follow up with primary Forms: [employer] ([place] Islander), WORK NOTE
[2018-09-19] MEDS ORDERED: Magnesium Citrate Oral SOL (300 ml) PO ONE (17:26)
[2018-09-19 19:42] LABS: URINE BILIRUBIN NEGATIVE (NEGATIVE); URINE BLOOD NEGATIVE (NEGATIVE); URINE GLUCOSE (UA) NEGATIVE (NEGATIVE); URINE LEUKOCYTE ESTERASE SMALL Leu/uL (NEGATIVE); URINE PROTEIN NEGATIVE mg/dL (<30 mg/dL); URINE UROBILINOGEN 0.2 E.U./dL (<1 E.U./dL)
[2018-09-19 19:43] LABS: URINE APPEARANCE CLEAR (CLEAR); URINE COLOR LIGHT YELLOW (YELLOW)
[2018-09-19 19:48] LABS: URINE BACTERIA SMALL /hpf; URINE RBC NEGATIVE /hpf (0-2)
[2018-09-19 19:51] VITALS: PULSE 98; RESP 18; TEMP 98.7; O2SAT 100
[2018-09-19 19:59] VITALS: BP 108/67
== END 2018-09-19 20:00 | disposition home or self-care (01) ==
LOC: ED 15:28
DX: O28.8 Other abnormal findings on antenatal screening of mother (principal); K59.00 Constipation, unspecified; Z3A.24 24 weeks gestation of pregnancy
CPT/HCPCS: 81001; 87086; 99284; J7030